=== PATIENT | female | born 1945 | race Caucasian/White ===

== ENCOUNTER 2022-09-01 09:04 | Outpatient (CLI) | payer MEDICARE, SELFPAY ==
--- NOTE | 2022-09-01 09:00 | RT.EKG_ITS ---
APPROVED REPORT Exam: Resting ECG Reason for Exam: palpitations Patient Location: O HR:96 bpm ECG Measurements Heart Rate 96 AXIS MS 187 P 81 QRSd 98 QRS 44 QT 362 T 18 QTc 458 Conclusion Sinus rhythm...normal P axis, V-rate 50- 99 Normal Electrocardiogram
== END 2022-09-01 09:05 | disposition home or self-care (01) ==
LOC: DI.CARD 09:05
PROVIDERS: Visit Provider Internal Medicine Cardiovascular Disease
DX: R00.2 Palpitations
CPT/HCPCS: 93010

== ENCOUNTER → 2022-12-01 12:36 | Outpatient (BNVA) | payer MEDICARE, SELFPAY | PROVIDERS: Visit Provider Internal Medicine Cardiovascular Disease | DX: I10 Essential (primary) hypertension (principal); Z86.79 Personal history of other diseases of the circulatory system; I47.1 Supraventricular tachycardia | CPT/HCPCS: 99213 ==

== ENCOUNTER → 2023-12-14 12:47 | Outpatient (BNVA) | payer MEDICARE, SELFPAY | PROVIDERS: Visit Provider Internal Medicine Cardiovascular Disease | DX: I10 Essential (primary) hypertension (principal); Z86.79 Personal history of other diseases of the circulatory system | CPT/HCPCS: 99213 ==

== ENCOUNTER 2024-12-12 07:58 | Outpatient (CLI) | payer MEDICARE, SELFPAY ==
--- NOTE | 2024-12-12 07:45 | RT.EKG_ITS ---
APPROVED REPORT Exam: Resting ECG Reason for Exam: palpitations Patient Location: O HR:71 bpm ECG Measurements Heart Rate 71 AXIS SC 196 P 45 QRSd 99 QRS 28 QT 390 T 34 QTc 424 Conclusion Sinus rhythm...normal P axis, V-rate 50- 99 Normal Electrocardiogram
== END 2024-12-12 07:59 | disposition home or self-care (01) ==
LOC: DI.CARD 07:58
PROVIDERS: Visit Provider Registered Nurse
DX: R00.2 Palpitations (principal)
CPT/HCPCS: 93010

== ENCOUNTER → 2024-12-12 10:43 | Outpatient (BNVA) | payer MEDICARE, SELFPAY | PROVIDERS: PCP Student in an Organized Health Care Education/Training Program; Referring Provider Student in an Organized Health Care Education/Training Program; Visit Provider Registered Nurse | DX: Z86.79 Personal history of other diseases of the circulatory system (principal) | CPT/HCPCS: 99213; 93005 ==